=== PATIENT | male | born 1930 | race Caucasian/White ===

== ENCOUNTER → 2019-05-18 | Outpatient (CLI) | payer MEDICARE ==
[2019-05-18 12:39] LABS: Appearance,Urine Cloudy (Clear); Bacteria,Urine Rare /hpf; Bilirubin,Urine Negative (Negative); Blood,Urine Negative (Negative); Color,Urine Yellow; Glucose,Urine (UA) Negative (Negative); Ketones,Urine Negative (Negative); Leukocyte Esterase,Urine Large (Negative); Nitrite,Urine Positive (Negative); Protein,Urine Negative (Negative); Specific Gravity,Urine 1.013 (1.001-1.035); Urobilinogen,Urine <2.0 mg/dL (<2.0); WBC,Urine 87 /hpf (0-5)
== END | disposition home or self-care (01) ==
LOC: LABPAT 11:40
PROVIDERS: ATTEND Urology
DX: Z01.818 Encounter for other preprocedural examination (principal); R33.9 Retention of urine, unspecified; R35.0 Frequency of micturition; I10 Essential (primary) hypertension; Z01.812 Encounter for preprocedural laboratory examination
CPT/HCPCS: 81001; 87077; 87086; 87186; 93005

== ENCOUNTER 2019-05-25 09:27 | Day surgery (SDC) | payer MEDICARE ==
--- NOTE | 2019-05-24 20:47 | P.GSHP ---
History of Present Illness H&P Date: 05/24/19 88 yo male with marked obstructive urinary sympotms, significant incomplete bladder emptying, an enlarged prostate with maximum medical management who comes for a bipolar turp He has been cleared by cardiology The risks and complications have been discussed - Gastrointestinal Gastrointestinal: Reports excessive gas - Genitourinary (Male) Genitourinary: Reports as per HPI - Musculoskeletal Musculoskeletal: Reports limitation of motion Past Medical History Past Medical History: Atrial Fibrillation, Heart Failure, Hyperlipidemia, Hypertension, Osteoarthritis (OA), Prostate Disorder, Skin Disorder Additional Past Medical History / Comment(s): HOME 02 2 LITERS N/C AT NIGHT-(son thinks due to CHF), C-DIFF 2011, hx cellulitis, spinal stenosis, urinary leakage-wearing depends History of Any Multi-Drug Resistant Organisms: None Reported Past Surgical History: Heart Catheterization With Stent, Pacemaker, Tonsillectomy Additional Past Surgical History / Comment(s): 4 CARDIAC STENTS, CORTEZ CATARACTS,COLONOSCOPY, CORTEZ HIP REPLACEMENTS,LUMBAR LAMINECTOMY, PROSTHESIS INSERTED IN LOWER BACK Past Anesthesia/Blood Transfusion Reactions: No Reported Reaction Date of Last Stent Placement:: 2011 Type of Cardiac Device: Permanent Pacemaker Device Placement Date:: 2009 Smoking Status: Never smoker - Past Family History Mother Family Medical History: CVA/TIA Father Family Medical History: Myocardial Infarction (ND) Sister(s) Family Medical History: Cancer Medications and Allergies Home Medications Medication Instructions Recorded Confirmed Type Aspirin 81 mg PO HS 04/22/16 05/19/19 History Clopidogrel [Plavix] 75 mg PO QAM 04/22/16 05/19/19 History Furosemide [Lasix] 80 mg PO QAM 04/22/16 05/19/19 History Simvastatin [Zocor] 20 mg PO HS 04/22/16 05/19/19 History Terazosin [Hytrin] 5 mg PO BID 04/22/16 05/19/19 History Testosterone Cypionate 400mg/Ml 400 mg IM QMONTH 04/22/16 05/19/19 History Apixaban [Eliquis] 2.5 mg PO BID 05/19/19 05/19/19 History Budesonide [Pulmicort] 0.5 mg INHALATION BID 05/19/19 05/19/19 History Cephalexin [Keflex] 500 mg PO Q12HR 05/19/19 05/19/19 History Finasteride [Proscar] 5 mg PO DAILY 05/19/19 05/19/19 History Furosemide [Lasix] 40 mg PO 1500 05/19/19 05/19/19 History Ipratropium-Albuterol Nebulize 3 ml INHALATION QID PRN 05/19/19 05/19/19 History [Duoneb 0.5 mg-3 mg/3 ml Soln] Losartan [Cozaar] 50 mg PO DAILY 05/19/19 05/19/19 History Metoprolol Succinate (ER) [Toprol 50 mg PO BID 05/19/19 05/19/19 History Xl] Multivitamins, Thera [Multivitamin 1 tab PO DAILY 05/19/19 05/19/19 History (formulary)] Stool Softner 1 tab PO BID 05/19/19 05/19/19 History amLODIPine [Norvasc] 2.5 mg PO DAILY 05/19/19 05/19/19 History Allergies Allergy/AdvReac Type Severity Reaction Status Date / Time codeine AdvReac flushing, Verified 05/19/19 09:13 hot Surgical - Exam - General well developed, well nourished, no distress - Eyes PERRL - ENT no hearing loss - Neck no masses - Respiratory normal expansion, normal respiratory effort - Cardiovascular Rhythm: irregularly irregular - Abdomen Abdomen: soft, non tender - Genitourinary enlarged benign prostate normal penis with no external lesions, testicles present - Integumentary no rash, no growths - Neurologic normal coordination, normal sensation - Musculoskeletal normal posture - Psychiatric oriented to time, oriented to person, oriented to place, speech is normal, memory intact Assessment and Plan Assessment: Impression: Bph with obstruction Plan: Bipolar turp
[~2019-05-25 09:27] MED LIST: AMPICILLIN 1,000 MG in SODIUM CHLORIDE 0.9% 50 ML IVPB ONE; GENTAMICIN 120 MG in SODIUM CHLORIDE 0.9% 100 ML IVPB ONE; LIDOCAINE 1% 20 ML VIAL (10MG/ML) FOR IV START INTRADERMA PRN; ONDANSETRON 4 MG/2 ML VIAL IVP ONE; fentaNYL (PF) 50 MCG/ML 2 ML AMP IV PRN
[2019-05-25] MEDS ORDERED: LACTATED RINGERS 1,000 ML IV ONE (09:55)
[2019-05-25] MEDS ORDERED: MIDAZOLAM 2 MG/2 ML VIAL ONE (10:59)
[2019-05-25] MEDS ORDERED: BELLADONNA-OPIUM 16.2-60 MG 1 EACH SUPP RECTAL PRN (12:37)
[2019-05-25] MEDS ORDERED: MAG HYDROX/AL HYDROX/SIMETH 30 ML CUP PO PRN (12:37)
[2019-05-25] MEDS ORDERED: ACETAMINOPHEN TAB 325 MG TAB PO PRN (12:37)
--- NOTE | 2019-05-25 12:41 | P.OP ---
Date of Procedure: 05/25/19 Preoperative Diagnosis: BPH with retention Postoperative Diagnosis: Same Procedure(s) Performed: Cystoscopy with bipolar TURP Anesthesia: spinal Surgeon: Addi Gaming Estimated Blood Loss (ml): 100 Pathology: other (Prostate) Condition: stable Disposition: PACU Indications for Procedure: The patient is 88. He has marked prominent with incontinence and incomplete bladder emptying with residuals over 600 mL. He has an obstructing trilobar prostate. He comes for a bipolar TURP alternatives have been discussed he has failed medical management Description of Procedure: Patient is brought to the operating suite. He is given a successful spinal anes thetic. He's placed lithotomy position with sterile prep and drape. Urethra is cut to 28-Chadian with the [place] urethrotome. Under direct vision the 25-Chadian sheath and direct vision obturator and Foroblique lenses introduced in urethra and shows a wide caliber stricture dilated with the scope. The prostate shows trilobar obstruction with an intravesical middle lobe. With the Fernandez resectoscope and bipolar loop I first resect the middle lobe. I then resect the left lateral lobe proximally and then apically from bladder neck to verumontanum. I resect from 12 to 6:00. I do the same of the right lateral lobe. I resect the redundant tissue. The bladder free to prostatic chips with the [place] evacuator. Bleeding was controlled electrocautery. I removed the resectoscope and coud the bladder with a good strong stream. An 18-Chadian Malone cath is introduced in the bladder with clear urine return. Patient's awake and returned recovery in good condition. He'll be observed in the hospital overnight due to his age. Blood loss is approximately 100 mL.
[2019-05-25 13:13] LABS: Glucose,Whole Blood 83 mg/dL (75-99)
[2019-05-25] MEDS: LACTATED RINGERS 1,000 ML IV SCH (16:48)
[2019-05-25] MEDS: FUROSEMIDE 40 MG TAB PO SCH ×2 (16:49→17:12)
[2019-05-25] MEDS: DEXTROSE 5%-0.45% NACL 1,000 ML IV SCH (19:19)
[2019-05-25] MEDS: IPRATROPIUM-ALBUTEROL 3 ML NEB INHALATION PRN (20:08)
[2019-05-25] MEDS: BUDESONIDE 0.5 MG/2 ML NEBU INHALATION SCH (20:09)
[2019-05-25] MEDS ORDERED: ATORVASTATIN 10 MG TAB PO SCH (21:00)
[2019-05-25] MEDS: METOPROLOL SUCCINATE (ER) 50 MG TAB.ER.24H PO SCH (21:10)
[2019-05-25] MEDS: CEPHALEXIN 500 MG CAP PO SCH (21:11)
[2019-05-25] MEDS: DOCUSATE 100 MG CAP PO SCH (21:11)
[2019-05-26] MEDS: LACTATED RINGERS 1,000 ML IV SCH (01:08)
[2019-05-26] MEDS: DEXTROSE 5%-0.45% NACL 1,000 ML IV SCH (01:08)
--- NOTE | 2019-05-26 06:50 | P.DS ---
Providers Attending physician: Addi Gaming Primary care physician: [facility] Course: The patient was brought to the hospital 05/25/2019 for a TURP for urine retention and incontinence. He underwent this without difficulty. Due to his age and health he was kept in the hospital overnight. He did well without problems. Urine has cleared appropriately. He is ready for discharge home. He'll go home with the catheter until Thursday. Activities Limited. We'll hold the antico agulation. Diet is regular. Pathology is pending. Condition is good. Patient Condition at Discharge: Good Plan - Discharge Summary Discharge Rx Participant: No New Discharge Prescriptions: No Action Testosterone Cypionate 400mg/Ml 400 mg IM QMONTH Aspirin 81 mg PO HS Clopidogrel [Plavix] 75 mg PO QAM Terazosin [Hytrin] 5 mg PO BID Simvastatin [Zocor] 20 mg PO HS Furosemide [Lasix] 80 mg PO QAM Cephalexin [Keflex] 500 mg PO Q12HR amLODIPine [Norvasc] 2.5 mg PO DAILY Multivitamins, Thera [Multivitamin (formulary)] 1 tab PO DAILY Budesonide [Pulmicort] 0.5 mg INHALATION BID Ipratropium-Albuterol Nebulize [Duoneb 0.5 mg-3 mg/3 ml Soln] 3 ml INHALATION QID PRN PRN Reason: sob Losartan [Cozaar] 50 mg PO DAILY Metoprolol Succinate (ER) [Toprol Xl] 50 mg PO BID Furosemide [Lasix] 40 mg PO 1500 Finasteride [Proscar] 5 mg PO DAILY Apixaban [Eliquis] 2.5 mg PO BID Stool Softner 1 tab PO BID Discharge Medication List Aspirin 81 mg PO HS 04/22/16 [History] Clopidogrel [Plavix] 75 mg PO QAM 04/22/16 [History] Furosemide [Lasix] 80 mg PO QAM 04/22/16 [History] Simvastatin [Zocor] 20 mg PO HS 04/22/16 [History] Terazosin [Hytrin] 5 mg PO BID 04/22/16 [History] Testosterone Cypionate 400mg/Ml 400 mg IM QMONTH 04/22/16 [History] Apixaban [Eliquis] 2.5 mg PO BID 05/19/19 [History] Budesonide [Pulmicort] 0.5 mg INHALATION BID 05/19/19 [History] Cephalexin [Keflex] 500 mg PO Q12HR 05/19/19 [History] Finasteride [Proscar] 5 mg PO DAILY 05/19/19 [History] Furosemide [Lasix] 40 mg PO 1500 05/19/19 [History] Ipratropium-Albuterol Nebulize [Duoneb 0.5 mg-3 mg/3 ml Soln] 3 ml INHALATION QID PRN 05/19/19 [History] Losartan [Cozaar] 50 mg PO DAILY 05/19/19 [History] Metoprolol Succinate (ER) [Toprol Xl] 50 mg PO BID 05/19/19 [History] Multivitamins, Thera [Multivitamin (formulary)] 1 tab PO DAILY 05/19/19 [History] Stool Softner 1 tab PO BID 05/19/19 [History] amLODIPine [Norvasc] 2.5 mg PO DAILY 05/19/19 [History] Follow up Appointment(s)/Referral(s): Addi Gaming MD [STAFF PHYSICIAN] - 05/30/19 Activity/Diet/Wound Care/Special Instructions: hold asa plavix and eliquis until I clear Discharge Disposition: HOME SELF-CARE
[2019-05-26 07:54] VITALS: BP 134/61; RESP 16; TEMP 98.3
[2019-05-26] MEDS: BUDESONIDE 0.5 MG/2 ML NEBU INHALATION SCH (08:08)
[2019-05-26] MEDS: IPRATROPIUM-ALBUTEROL 3 ML NEB INHALATION PRN (08:08)
[2019-05-26] MEDS: DOCUSATE 100 MG CAP PO SCH (08:22)
[2019-05-26] MEDS: CEPHALEXIN 500 MG CAP PO SCH (08:22)
[2019-05-26] MEDS: METOPROLOL SUCCINATE (ER) 50 MG TAB.ER.24H PO SCH (08:22)
[2019-05-26 08:33] VITALS: PULSE 69
[2019-05-26] MEDS ORDERED: LOSARTAN 50 MG TAB PO SCH (09:00)
[2019-05-26] MEDS ORDERED: FUROSEMIDE 80 MG TAB PO SCH (09:00)
[2019-05-26] MEDS ORDERED: amLODIPine 2.5 MG TAB PO SCH (09:00)
== END 2019-05-26 10:05 | disposition home or self-care (01) ==
LOC: OR 09:27 → 4SSUR 12:36 → OR 05-26 10:05
PROVIDERS: ATTEND Urology
DX: N40.1 Benign prostatic hyperplasia with lower urinary tract symptoms (principal); R33.8 Other retention of urine; R39.14 Feeling of incomplete bladder emptying; R32 Unspecified urinary incontinence; I48.91 Unspecified atrial fibrillation; I50.9 Heart failure, unspecified; E78.5 Hyperlipidemia, unspecified; I10 Essential (primary) hypertension; M19.90 Unspecified osteoarthritis, unspecified site; J44.9 Chronic obstructive pulmonary disease, unspecified; Z99.81 Dependence on supplemental oxygen; Z96.643 Presence of artificial hip joint, bilateral; Z95.0 Presence of cardiac pacemaker; Z95.5 Presence of coronary angioplasty implant and graft; Z97.2 Presence of dental prosthetic device (complete) (partial); Z86.19 Personal history of other infectious and parasitic diseases; Z95.1 Presence of aortocoronary bypass graft; Z98.49 Cataract extraction status, unspecified eye; Z79.01 Long term (current) use of anticoagulants; Z79.02 Long term (current) use of antithrombotics/antiplatelets; Z79.51 Long term (current) use of inhaled steroids; Z79.899 Other long term (current) drug therapy; Z88.5 Allergy status to narcotic agent; Z79.82 Long term (current) use of aspirin
CPT/HCPCS: 52601; 94640 ×2; 88305; J2250; J1580; J0290